=== PATIENT | male | born 1960 | race Two or more races ===

== ENCOUNTER 2018-12-12 20:25 | Emergency (ER) | payer MEDICAID ==
[~2018-12-12] VITALS: Ht 170.2 cm; Wt 121.0 kg
[2018-12-12] MEDS ORDERED: KETOROLAC 30MG/ML VIAL IV STA (23:23)
[2018-12-13 00:01] LABS: BASOPHILS % 0.7 % (0.0-2.0); HEMATOCRIT. 41.4 % (42.0-52.0); HEMOGLOBIN. 14.3 g/dL (14.0-18.0); LYMPHOCYTES % 42.3 % (20.0-50.0); MEAN CORPUSCULAR HEMOGLOBIN 32.7 pg (28.0-32.0); MEAN CORPUSCULAR VOLUME 94.9 fL (80.0-94.0); MEAN PLATELET VOLUME 8.6 fl (7.4-10.4); MONOCYTES % 6.5 % (2.0-8.0); NEUTROPHILS % 47.5 % (40.0-76.0); PLATELET 273 x1000/uL (130-400); RED BLOOD CELL COUNT 4.36 mill/uL (4.7-6.1); RED CELL DISTRIBUTION WIDTH 14.7 % (11.6-14.6)
[2018-12-13 00:03] LABS: CHLORIDE 106 mEq/L (98-107); CLARITY URINE CLEAR (CLEAR); COLOR URINE YELLOW (YELLOW); KETONES URINE NEGATIVE (NEGATIVE); LEUKOCYTE ESTERASE URINE 3+ (NEGATIVE); NITRITE URINE NEGATIVE (NEGATIVE); OCCULT BLOOD URINE NEGATIVE (NEGATIVE); PROTEIN URINE NEGATIVE (NEGATIVE); SPECIFIC GRAVITY URINE 1.018 (1.005-1.030)
[2018-12-13] MEDS ORDERED: CEFTRIAXONE 1 G PREMIX 50 ML IV SCH (02:00)
[2018-12-13 03:15] VITALS: BP 146/81
== END 2018-12-13 03:27 | disposition home or self-care (01) ==
LOC: ER 20:25
DX: N12 Tubulo-interstitial nephritis, not specified as acute or chronic (principal); E11.9 Type 2 diabetes mellitus without complications; E78.00 Pure hypercholesterolemia, unspecified; I10 Essential (primary) hypertension; E05.90 Thyrotoxicosis, unspecified without thyrotoxic crisis or storm; F17.210 Nicotine dependence, cigarettes, uncomplicated; Z71.6 Tobacco abuse counseling
CPT/HCPCS: 36415; 74176; 80053; 81003; 84484; 85025; 87077; 87086; 87186; 93005; 96374; 99284; 99406; C1893; J0696; J1885; Z7610

== ENCOUNTER 2020-04-25 14:42 | Emergency (ER) | payer MEDICARE, MEDICAID ==
[~2020-04-25] VITALS: Ht 167.6 cm; Wt 90.0 kg
[2020-04-25 17:58] LABS: CHLORIDE 103 mEq/L (98-107)
[2020-04-25 18:00] LABS: BASOPHILS % 0.6 % (0.0-2.0); EOSINOPHILS % 2.9 % (0.0-5.0); HEMATOCRIT. 40.6 % (42.0-52.0); HEMOGLOBIN. 13.9 g/dL (14.0-18.0); LYMPHOCYTES % 36.7 % (20.0-50.0); MEAN CORPUSCULAR HEMOGLOBIN 32.7 pg (28.0-32.0); MEAN CORPUSCULAR VOLUME 95.1 fL (80.0-94.0); MONOCYTES % 9.9 % (2.0-8.0); NEUTROPHILS % 49.9 % (40.0-76.0); PLATELET 349 x1000/uL (130-400); RED BLOOD CELL COUNT 4.27 mill/uL (4.7-6.1); RED CELL DISTRIBUTION WIDTH 14.6 % (11.6-14.6)
[2020-04-25] MEDS ORDERED: ONDANSETRON HCL 4MG/2ML INJ IV ONE (18:00)
[2020-04-25] MEDS ORDERED: SODIUM CHLORIDE 0.9% 1,000 ML IV ONE (18:00)
[2020-04-25 19:01] LABS: HEPATITIS B SURFACE ANTIGEN NEGATIVE
[2020-04-25 19:31] LABS: HEPATITIS A AB IGM NEGATIVE (NEGATIVE)
[2020-04-25] MEDS ORDERED: POTASSIUM CHLORIDE 20MEQ TABLET SR PO ONE (21:30)
[2020-04-25 22:02] VITALS: BP 152/68
== END 2020-04-25 22:00 | disposition home or self-care (01) ==
LOC: ER 14:42
DX: R10.9 Unspecified abdominal pain (principal); E87.6 Hypokalemia; R11.2 Nausea with vomiting, unspecified
CPT/HCPCS: 36415; 71045; 74176; 80053; 83880; 84484; 85025; 86705; 86709; 86803; 87340; 96361; 96374; 99285; J2405; J7030

== ENCOUNTER 2021-08-16 10:09 | Emergency (ER) | payer MEDICARE, MEDICAID ==
[~2021-08-16] VITALS: Ht 165.1 cm; Wt 120.0 kg
[2021-08-16] MEDS ORDERED: KETOROLAC 30MG/ML VIAL IM STA (10:22)
[2021-08-16 10:54] LABS: BASOPHILS % 0.8 % (0.0-2.0); EOSINOPHILS % 2.8 % (0.0-5.0); HEMATOCRIT. 41.1 % (42.0-52.0); HEMOGLOBIN. 13.7 g/dL (14.0-18.0); LYMPHOCYTES % 33.9 % (20.0-50.0); MEAN CORPUSCULAR HEMOGLOBIN 31.8 pg (28.0-32.0); MEAN CORPUSCULAR VOLUME 95.4 fL (80.0-94.0); MEAN PLATELET VOLUME 8.9 fl (7.4-10.4); MONOCYTES % 5.1 % (2.0-8.0); NEUTROPHILS % 57.4 % (40.0-76.0); PLATELET 239 x1000/uL (130-400); RED BLOOD CELL COUNT 4.31 mill/uL (4.7-6.1); RED CELL DISTRIBUTION WIDTH 14.1 % (11.6-14.6)
[2021-08-16 10:56] LABS: CHLORIDE 103 mEq/L (98-107)
[2021-08-16 12:48] LABS: CLARITY URINE CLOUDY (CLEAR); COLOR URINE YELLOW (YELLOW); KETONES URINE NEGATIVE (NEGATIVE); LEUKOCYTE ESTERASE URINE 2+ (NEGATIVE); NITRITE URINE POSITIVE (NEGATIVE); OCCULT BLOOD URINE TRACE (NEGATIVE); PROTEIN URINE NEGATIVE (NEGATIVE); SPECIFIC GRAVITY URINE 1.031 (1.005-1.030)
[2021-08-16] MEDS ORDERED: CEPH500C2 MT (13:25)
[2021-08-16] MEDS ORDERED: IBUP-2029 MT (13:25)
[2021-08-16 13:59] VITALS: BP 123/63
== END 2021-08-16 14:22 | disposition home or self-care (01) ==
LOC: ER 10:09
DX: N12 Tubulo-interstitial nephritis, not specified as acute or chronic (principal); K59.00 Constipation, unspecified; E11.9 Type 2 diabetes mellitus without complications; K21.9 Gastro-esophageal reflux disease without esophagitis; E78.00 Pure hypercholesterolemia, unspecified; I10 Essential (primary) hypertension; Z98.890 Other specified postprocedural states
CPT/HCPCS: 36415; 71045; 80053; 81003; 83690; 85025; 87077; 87086; 87186; 93005; 96372; 99285; J1885